=== PATIENT | female | born 1980 | race Two or more races ===

== ENCOUNTER 2019-01-08 12:50 | Emergency (ER) | payer SELFPAY ==
[2019-01-08 12:56] VITALS: BP 119/75
[2019-01-08] MEDS ORDERED: PREDNISONE 20 MG TABLET PO ONE (13:36)
--- NOTE | 2019-01-08 13:36 | ER Document Report ---
HPI - HPI Patient complains to provider of: rash Time Seen by Provider: 01/08/19 13:21 Onset: Other - 2 weeks Quality of pain: Achy Pain Level: 4 - itchy Context: This 38-year-old female presents emergency department with severe rash to her hands, soles of her feet around her groin to her right wrist for the past 2 weeks. She has been to see 2 different providers who have both prescribed di fferent steroid lotions for eczema. She reports nothing is working the rash is getting worse. She also reports her daughter now has one spot on her wrist. Patient reports the rash is severely itchy. She denies recent new detergents or lotions. She reports she is never had this before. She denies fever vomiting diarrhea. - REPRODUCTIVE Reproductive: DENIES: : Past Medical History - General Information source: Patient Last Menstrual Period: last week denies - Social History Smoking Status: Unknown if Ever Smoked Cigarette use (# per day): No Frequency of alcohol use: None Drug Abuse: None Lives with: Family Family History: Reviewed & Not Pertinent Patient has suicidal ideation: No Patient has homicidal ideation: No - Medical History Medical History: Negative Surgical Hx: Negative Vertical Provider Document - CONSTITUTIONAL Agree With Documented VS: Yes Exam Limitations: No Limitations General Appearance: WD/WN, No Apparent Distress - INFECTION CONTROL TRAVEL OUTSIDE OF THE [place] IN LAST 30 DAYS: No - HEENT HEENT: Atraumatic, Normocephalic - NECK Neck: Supple - RESPIRATORY Respiratory: Breath Sounds Normal, No Respiratory Distress - CARDIOVASCULAR Cardiovascular: Regular Rate - MUSCULOSKELETAL/EXTREMETIES Musculoskeletal/Extremeties: MAKB, FROM - NEURO Level of Consciousness: Awake, Alert, Appropriate Motor/Sensory: No Motor Deficit - DERM Integumentary: Warm, Dry, Rash - multiple small, vesicles on the palmar plantar skin, especially along the lateral aspects of the fingers and toes , right volar wrist, no open wounds Course - Re-evaluation Re-evalutation: 01/08/19 13:39 This 38-year-old female presents with history of eczema. Patient has been to see 2 different providers who prescribed her lotions for her hands. She reports eczema is worse. Reports is very itchy. Patient was shown a picture of dyshidrotic eczema. She reports that is exactly how it started. Will place patient on oral steroids instructed to follow back up with her primary care provider for recheck within the week and also follow-up with dermatology. Patient verbalized understanding to all instructions. She was also instructed to person protect her skin try not to itch take Benadryl as indicated Dictation of this chart was performed using voice recognition software; therefore, there may be some unintended grammatical errors. 01/08/19 14:05 - Vital Signs Vital signs: Temp Pulse Resp BP Pulse Ox 97.8 F 83 19 119/75 97 01/08/19 12:55 01/08/19 12:55 01/08/19 12:55 01/08/19 12:55 01/08/19 12:55 Discharge - Discharge Clinical Impression: Dyshidrotic eczema Condition: Stable Disposition: HOME, SELF-CARE Instructions: Psychological Operations, Steroid Medication Additional Instructions: *You have been treated for dyshidrotic eczema *Take medication as prescribed *Monitor your skin for signs of infection such as increasing pain, redness, swelling, warmth *protect your skin, avoid itching, apply vaseline, wear gloves at night *Follow up with a primary care provider within one week for recheck *Follow-up with a dermatology teacher within 1 week *Return to ED for signs of infection, worsening condition, changes, needs Prescriptions: Prednisone [Deltasone 10 mg Tablet] 10 mg PO ASDIR PRN #21 tablet PRN Reason: Referrals: LEAH PEDERSON MD [ACTIVE STAFF] - Follow up as needed [facility] [Provider Group] - Follow up in 1 week
== END 2019-01-08 13:52 | disposition home or self-care (01) ==
LOC: ER 12:50
DX: L30.1 Dyshidrosis [pompholyx] (principal); R21 Rash and other nonspecific skin eruption
CPT/HCPCS: 99282; J7512

== ENCOUNTER 2019-01-21 15:40 | Emergency (ER) | payer SELFPAY ==
[2019-01-21 15:55] VITALS: BP 121/71
--- NOTE | 2019-01-21 17:06 | ER Document Report ---
HPI - HPI Time Seen by Provider: 01/21/19 17:03 Pain Level: 5 Context: Patient is a 38-year-old female presents to the emergency department with a chief complaint of rash. Patient states she was seen here 2 weeks ago and given a prednisone taper. Patient states the prednisone did help but since completing the course of steroids the rash has returned. Patient states it remains specifically to the hands bilaterally. Patient states she noticed small blisters that pop. Patient states she does work with her hands a lot at work but does wear gloves to keep them covered. Patient states she does not think she is allergic to the gloves that she has been using them for 5 years. Patient states she has had similar symptoms in the past and diagnosed with eczema. Patient states she is been getting eczema creams in the past. Patient states she attempted to follow-up with dermatology but was told she needed a referral. Patient asking for referral. - REPRODUCTIVE Reproductive: DENIES: : Past Medical History - General Information source: Patient - Social History Smoking Status: Never Smoker Frequency of alcohol use: None Drug Abuse: None Lives with: Family Family History: Reviewed & Not Pertinent - Past Medical History Cardiac Medical History: Reports: None Pulmonary Medical History: Reports: None EENT Medical History: Reports: None Neurological Medical History: Reports: None Endocrine Medical History: Reports: None Renal/ Medical History: Reports: None. Denies: Hx Peritoneal Dialysis Malignancy Medical History: Reports: None GI Medical History: Reports: None Musculoskeletal Medical History: Reports None Skin Medical History: Reports Hx Eczema Psychiatric Medical History: Reports: None Traumatic Medical History: Reports: None Infectious Medical History: Reports: None Surgical Hx: Negative Vertical Provider Document - CONSTITUTIONAL Agree With Documented VS: Yes Exam Limitations: No Limitations General Appearance: No Apparent Distress - INFECTION CONTROL TRAVEL OUTSIDE OF THE [place] IN LAST 30 DAYS: No - HEENT HEENT: Atraumatic, Normal ENT Exam, Normocephalic, PERRLA - RESPIRATORY Respiratory: Breath Sounds Normal, No Respiratory Distress - CARDIOVASCULAR Cardiovascular: Regular Rate, Regular Rhythm - GI/ABDOMEN Gastrointestinal: Abdomen Soft, Abdomen Non-Tender, Normal Bowel Sounds - NEURO Level of Consciousness: Awake, Alert, Appropriate - DERM Integumentary: Warm Notes: Patient has multiple small vesicles to the palmar and dorsal aspect of bilateral hands. Patient also notes to have some excoriated skin in between the fingers. There is an open wound to the left hand with no erythema or obvious signs of infection. Course - Re-evaluation Re-evalutation: 01/21/19 17:42 We will give a dose of Decadron prior to discharge. Patient is asking for more oral steroids. I did inform the patient that I will not prescribe oral steroids as this is only a temporary fix and she just finished a taper dose. I did prescribe the patient a steroid cream to place on her hands twice a day for 10 days. I did inform the patient to not use this after that as it is a steroid. Patient states she is not breast-feeding or currently . I did give the patient multiple dermatology referrals. I did inform the patient to buy [id number] Eucerin lotion as this can be used for eczema. Patient to keep them clean and dry with lotion. I did instruct the patient to return if symptoms worsen. Patient verbalized understanding. - Vital Signs Vital signs: Temp Pulse Resp BP Pulse Ox 98.2 F 87 16 121/71 96 01/21/19 15:54 01/21/19 15:54 01/21/19 15:54 01/21/19 15:54 01/21/19 15:54 Discharge - Discharge Clinical Impression: Rash Eczema Qualifiers: Eczema type: unspecified Qualified Code(s): L30.9 - Dermatitis, unspecified Condition: Stable Disposition: HOME, SELF-CARE Additional Instructions: Today you were seen in the emergency department for a rash to her hands. This does appear to be eczema. Ultimately you need to follow-up with dermatology as they can develop a treatment plan that works for you. I am prescribing you a topical steroid versus oral steroids. Please use this as needed. Please avoid scented lotions, perfume and keep your hands covered while at work so you are not getting them wet. Try Eucerin lotion as this can be helpful and less irritating. Hoy te vieron en el departamento de emergencias por josé erupcin en las serina. Ennis parece ser eccema. En ltima instancia, debe realizar un seguimiento con dermatologa, ya que pueden desarrollar un plan de tratamiento que funcione para usted. Te estoy prescribiendo un esteroide tpico versus esteroides orales. Utilice esto segn sea necesario. Evite las lociones perfumadas, los perfumes y mantenga las serina cubiertas mientras est en el trabajo para que no se moje. Pruebe la locin Eucerin, ya que puede ser til y menos irritante. Prescriptions: Prednisone [Deltasone 10 mg Tablet] 10 mg PO ASDIR PRN #21 tablet PRN Reason: Triamcinolone Acetonide 80 gm TP BID 10 Days #1 tube Cetirizine HCl [Zyrtec] 10 mg PO DAILY #30 capsule Referrals: EMILY COOL DO [ACTIVE STAFF] - Follow up as [facility] [[facility]] - Follow up as needed NIRMAL HENDERSON MD [ACTIVE STAFF] - Follow up as needed [facility] [Provider Group] - Follow up as needed Print Language: Telugu
[2019-01-21] MEDS ORDERED: DEXAMETHASONE SOD PHOS INJ 10 MG/1 ML VIAL IM ONE (17:40)
== END 2019-01-21 18:34 | disposition home or self-care (01) ==
LOC: ER 15:40
DX: L30.9 Dermatitis, unspecified (principal)
CPT/HCPCS: 96374; 99282; J1100

== ENCOUNTER 2020-02-06 03:34 | Emergency (ER) | payer SELFPAY ==
[2020-02-06 05:15] LABS: APPEARANCE,URINE SLIGHTLY-CLOUDY; BILIRUBIN,URINE NEGATIVE (NEGATIVE); COLOR,URINE YELLOW; GLUCOSE, URINE NEGATIVE (NEGATIVE); KETONES,URINE NEGATIVE (NEGATIVE); LEUKOCYTE ESTERASE,URINE TRACE (NEGATIVE); NITRITE,URINE NEGATIVE (NEGATIVE); PROTEIN,URINE NEGATIVE (NEGATIVE); URINE SPECIFIC GRAVITY 1.016; UROBILINOGEN,URINE NEGATIVE mg/dL (<2.0)
[2020-02-06] MEDS ORDERED: ONDANSETRON HCL INJ/PF 4 MG/2 ML SDV IV ONE (05:28)
[2020-02-06] MEDS ORDERED: NORMAL SALINE 1000 ML 1,000 ML IV ONE (05:28)
[2020-02-06] MEDS ORDERED: KETOROLAC TROMETHAMINE INJ/PF 30 MG/1 ML SDV IV ONE (05:28)
--- NOTE | 2020-02-06 05:32 | ER Document Report ---
ED General - General TRAVEL OUTSIDE OF THE [place] IN LAST 30 DAYS: No - HPI Onset: Yesterday Onset/Duration: Gradual Quality of pain: Cramping Severity: Moderate Pain Level: 3 Associated symptoms: Diarrhea, Nausea, Vomiting, Weakness Exacerbated by: Movement Relieved by: Remaining still <NIKKI MARTÍNEZ IV - Last Filed: 02/06/20 05:32> <GRIMESSHAHID Yulisa - Last Filed: 02/06/20 10:17> - General Chief Complaint: Nausea/Vomiting/Diarrhea Stated Complaint: NAUSEA,DIARRHEA,ABDOMINAL PAIN Time Seen by Provider: 02/06/20 05:20 - HPI Context: This is a 39-year-old female presenting to the emergency department complaining of nausea, vomiting and diarrhea as well as diffuse crampy abdominal pain that has been present for the past 2 days. Patient denies sick contacts or spoiled food exposure. Patient denies fever, chills, shortness of breath, chest pain. Patient states her menstrual cycle is occurring at present and is earlier than usual. Activity and eating seem to exacerbate her symptoms according to the patient. Remaining still slightly improves the symptoms but only temporarily. Patient denies known exposure to persons under investigation or persons recently diagnosed with COVID 19. (NIKKI MARTÍNEZ IV) - Related Data Allergies/Adverse Reactions: No Known Allergies Allergy (Verified 01/21/19 15:41) Past Medical History - General Information source: Patient - Social History Smoking Status: Never Smoker Chew tobacco use (# tins/day): No Frequency of alcohol use: None Drug Abuse: None Family History: Reviewed & Not Pertinent Renal/ Medical History: Denies: Hx Peritoneal Dialysis Skin Medical History: Reports Hx Eczema <NIKKI MARTÍNEZ IV - Last Filed: 02/06/20 05:32> Review of Systems - Review of Systems Constitutional: Weakness EENT: No symptoms reported Cardiovascular: No symptoms reported Respiratory: No symptoms reported Gastrointestinal: Abdominal pain, Diarrhea, Nausea, Vomiting Genitourinary: No symptoms reported Female Genitourinary: Irregular period Musculoskeletal: No symptoms reported Skin: No symptoms reported Hematologic/Lymphatic: No symptoms reported Neurological/Psychological: No symptoms reported -: Yes All other systems reviewed and negative <NIKKI MARTÍNEZ IV - Last Filed: 02/06/20 05:32> Physical Exam <NIKKI MARTÍNEZ IV - Last Filed: 02/06/20 05:32> - Vital signs Vitals: Temp Pulse Resp BP Pulse Ox 99.0 F 109 H 18 144/92 H 100 02/06/20 03:42 02/06/20 03:42 02/06/20 03:42 02/06/20 03:42 02/06/20 03:42 - Notes Notes: CONSTITUTIONAL [Vital signs reviewed, Patient appears comfortable, Alert and oriented X 3, Normal stature.] HEAD [Atraumatic, Normocephalic.] EYES [Eyes are normal to inspection, No discharge from eyes, Extraocular muscles intact, Sclera are normal, Conjunctiva are normal.] NECK [Normal ROM, No jugular venous distention, No meningeal signs, no carotid bruit.] RESPIRATORY CHEST [Chest is nontender, Breath sounds normal, No respiratory distress.] CARDIOVASCULAR [RRR, No murmurs, Normal S1 S2, No rub, No gallop.] ABDOMEN [Abdomen is nontender, No pulsatile masses, No other masses, Bowel sounds no rmal, No distension, No peritoneal signs, No hernias.] BACK [There is no CVA Tenderness, There is no tenderness to palpation, Normal inspection.] UPPER EXTREMITY [Inspection normal, No cyanosis, No clubbing, No edema, 2+ radial pulses.] LOWER EXTREMITY [Inspection normal, No cyanosis, No clubbing, No edema, No calf tenderness, 2+ femoral pulses.] NEURO [No focal motor deficits, No focal sensory deficits, Speech normal.] SKIN [Skin is warm, Skin is dry, Skin is normal color.] LYMPHATIC [No adenopathy in neck.] PSYCHIATRIC [Normal affect. ] (NIKIK MARTÍNEZ IV) Course - Laboratory Result Diagrams: 02/06/20 05:01 02/06/20 05:01 <NIKKI MARTÍNEZ IV - Last Filed: 02/06/20 05:32> - Laboratory Result Diagrams: 02/06/20 05:01 02/06/20 05:01 - Diagnostic Test Radiology reviewed: Reports reviewed <SHAHID GRIMES - Last Filed: 02/06/20 10:17> - Re-evaluation Re-evalutation: 02/06/20 10:10 Patient resting comfortably not showing any acute distress at this time. Patient is medically cleared for discharge. Patient has an ovarian cyst on the left no active bleeding or torsion noted. (SHAHID GRIMES) - Vital Signs Vital signs: Temp Pulse Resp BP Pulse Ox 98.4 F 81 15 111/65 100 02/06/20 09:56 02/06/20 09:56 02/06/20 09:56 02/06/20 09:56 02/06/20 09:56 - Laboratory Laboratory results interpreted by me: 02/06/20 02/06/20 02/06/20 04:25 05:01 05:01 WBC 14.9 H Lymph % (Auto) 9.7 L Absolute Neuts (auto) 12.7 H Seg Neutrophils % 85.3 H Carbon Dioxide 21 L Glucose 122 H AST 42 H ALT 38 H Urine Blood LARGE H Ur Leukocyte Esterase TRACE H 02/06/20 10:11 Patient is on her menstrual cycle therefore urine shows a large amount of blood patient has a mild elevation and AST LFTs and a glucose is 122. Patient has a white blood cell count of 14.9 a low-grade temp of 99. (SHAHID GRIMES) - Diagnostic Test Radiology results interpreted by me: 02/06/20 10:12 CT scan of abdomen and pelvis disclose no acute process except for finding and left adnexal mass thought to be cyst versus any other type of tumor or mass. Ultrasound was recommended Ultrasound of pelvis shows a left ovarian mass and no other acute process. (SHAHID GRIMES) Discharge <NIKKI MARTÍNEZ IV - Last Filed: 02/06/20 05:32> <SHAHID GRIMES - Last Filed: 02/06/20 10:17> - Discharge Clinical Impression: Left ovarian cyst, Leukocytosis Condition: Stable Disposition: HOME, SELF-CARE Prescriptions: Amoxicillin/Potassium Clav [Augmentin 875-125 Tablet] 1 tab PO BID #14 tab Ibuprofen [Ibu] 800 mg PO TID PRN #21 tablet PRN Reason: For Pain Scale 3-5 Referrals: CORINNA NICHOLSON MD [ACTIVE STAFF] - Follow up in 1 week
[2020-02-06 05:42] LABS: ABSOLUTE EOSINOPHILS # (AUTO) 0.1 10^3/uL (0.0-0.6); ABSOLUTE LYMPHOCYTES (AUTO) 1.4 10^3/uL (0.5-4.7); ABSOLUTE MONOCYTES (AUTO) 0.6 10^3/uL (0.1-1.4); ABSOLUTE NEUT (AUTO) 12.7 10^3/uL (1.7-8.2); BASOPHILS % (AUTO) 0.3 % (0-2); EOSINOPHILS % (AUTO) 0.7 % (0-6); HEMATOCRIT 38.7 % (36.0-47.0); HEMOGLOBIN 12.7 g/dL (12.0-15.5); LYMPHOCYTES % (AUTO) 9.7 % (13-45); MEAN CORPUSCULAR HEMOGLOBIN 28.1 pg (27.0-33.4); MEAN CORPUSCULAR HGB CONC 32.8 g/dL (32.0-36.0); MEAN CORPUSCULAR VOLUME 86 fl (80-97); PLATELET COUNT 439 10^3/uL (150-450); RED BLOOD COUNT 4.51 10^6/uL (3.72-5.28); RED CELL DISTRIBUTION WIDTH 13.8 % (11.5-14.0); SEGMENTED NEUTROPHILS % (AUTO) 85.3 % (42-78); TOTAL CELLS COUNTED % (AUTO) 100 %; WHITE BLOOD COUNT 14.9 10^3/uL (4.0-10.5)
[2020-02-06 05:51] LABS: ALBUMIN 4.2 g/dL (3.5-5.0); ALKALINE PHOSPHATASE 115 U/L (38-126); ANION GAP 12 (5-19); ASPARTATE AMINO TRANSFERASE 42 U/L (14-36); BILIRUBIN,DIRECT 0.2 mg/dL (0.0-0.4); BILIRUBIN,TOTAL 0.4 mg/dL (0.2-1.3); BLOOD UREA NITROGEN 9 mg/dL (7-20); CALCIUM 9.1 mg/dL (8.4-10.2); CARBON DIOXIDE 21 mmol/L (22-30); CHLORIDE 107 mmol/L (98-107); GLUCOSE 122 mg/dL (75-110); POTASSIUM 3.9 mmol/L (3.6-5.0); TOTAL PROTEIN 7.6 g/dL (6.3-8.2)
--- NOTE | 2020-02-06 08:02 | RADIOLOGY REPORT (SQ) ---
CT ABDOMEN AND PELVIS WITH INTRAVENOUS CONTRAST: 02/06/2020 6:58 AM CDT HISTORY: 39-year old with abdominal pain. COMPARISON: None available TECHNIQUE: Axial contiguous images were obtained from the lung bases to the proximal femurs with intravenous intravenous contrast administered. Sagittal and coronal reconstructions were also obtained and reviewed. This exam was performed according to our departmental dose-optimization program, which includes automated exposure control, adjustment of the mA and/or KV according to the patient's size and/or use of iterative reconstruction technique. FINDINGS: No focal consolidative airspace opacities are seen. No discrete pleural effusions are seen. The visualized hepatic parenchyma is diffusely low in attenuation. No focal enhancing lesion is seen. The gallbladder demonstrates no evidence of calcified gallstones. The spleen and pancreas are normal in contour. The bilateral adrenal glands appear unremarkable. Both kidneys demonstrate no evidence of hydronephrosis. The urinary bladder is mildly distended, and appears grossly unremarkable. The uterus is present. There is an IUD seen at the uterus, likely at the endometrium. There is a left adnexal hypodensity measuring at least 5.9 x 4.9 cm. This is indeterminate. This appears separate but adjacent to the urinary bladder. The stomach is not well distended. There is mucosal thickening involving several of the ileal loops within the right lower quadrant of the abdomen with adjacent stranding. This likely represents enteritis. This is best seen on image 54 of 85. No findings are seen to suggest an obstruction. No pericolonic inflammatory stranding is seen. The appendix appears unremarkable. There are multiple diverticula seen within the sigmoid and descending colon, without evidence to suggest diverticulitis. An anterior umbilical hernia containing omental fat is seen. There is no evidence of pneumoperitoneum. There is trace free fluid within the lower pelvis.. The aorta and IVC appear normal in size. No significantly enlarged lymph nodes are seen in the abdomen or pelvis. Review of the bone show no evidence of any suspicious lytic or blastic lesions. IMPRESSION: There is a hypodensity within the left adnexa which may arise from the left ovary. This is separate but adjacent to the urinary bladder. This may represent a cystic neoplasm or hydrosalpinx. This could be better evaluated with ultrasound of the pelvis. There is mucosal thickening involving several of the ileal loops within the right lower quadrant of the abdomen with adjacent stranding. This likely represents enteritis. Hepatic steatosis
[2020-02-06 09:58] VITALS: BP 111/65
--- NOTE | 2020-02-06 10:10 | ER Document Report ---
Entered by KAREY CONSTANTINO SCRIBE 02/06/20 1002 Acting as scribe for:SHAHID GRIMES MD Doctor's Note Notes: 02/06/20 10:01 Received sign out on this patient pending CT results from Dr. Reid. CT consistent with left-sided ovarian cyst. Will discharge with ibuprofen and antibiotics. There is minimal pain in the left pelvic region. 02/06/20 10:10 I personally performed the services described in the documentation, reviewed and edited the documentation which was dictated to the scribe in my presence, and it accurately records my words and actions.
--- NOTE | 2020-02-06 10:26 | RADIOLOGY REPORT (SQ) ---
EXAM DESCRIPTION: U/S NON OB PEL W/DOPPLER IMAGES COMPLETED DATE/TIME: 02/06/2020 9:41 am REASON FOR STUDY: left adnexal mass COMPARISON: CT abdomen and pelvis 02/06/2020 TECHNIQUE: Dynamic and static grayscale images acquired of the pelvis via transabdominal and transva ginal approach and recorded on PACS. Additional selected color Doppler and spectral images recorded. LIMITATIONS: None. FINDINGS: UTERUS: Contour normal. No mass. An intrauterine device is present. ENDOMETRIAL STRIPE: No focal or generalized thickening. No masses. CERVIX: No nabothian cysts. RIGHT OVARY AND DOPPLER: Not visualized. LEFT OVARY AND DOPPLER: The left ovary overall measures 5.3 x 2.8 x 6.4 cm. It contains a hypoechoi c structure measuring 4.0 x 3.7 x 4.6 cm with some linear echogenic septae. Normal arterial vascular flow without evidence for torsion. FREE FLUID: None noted. OTHER: No other significant finding. MEASUREMENTS: UTERUS: 9.8 x 5.8 x 6.3 cm ENDOMETRIAL STRIPE: 3 mm RIGHT OVARY: Not visualized. LEFT OVARY: 5.3 x 2.8 x 6.4 cm IMPRESSION: Slightly complicated left ovarian cystic structure with some internal septi. Recommend follow-up ultrasound in 2 to 3 menstrual cycles to document resolution. Nonvisualization of the right ovary. Unremarkable appearance of the uterus with an intrauterine device in place. TECHNICAL DOCUMENTATION: JOB ID: [id number] 2010 [employer]- All Rights Reserved Rev-10/18 Reading location - IP/workstation name: [email or web address]
== END 2020-02-06 10:15 | disposition home or self-care (01) ==
LOC: ER 03:34
DX: N83.202 Unspecified ovarian cyst, left side (principal); D72.829 Elevated white blood cell count, unspecified; R10.2 Pelvic and perineal pain; R11.2 Nausea with vomiting, unspecified; R53.1 Weakness
CPT/HCPCS: 99285; 96361; 96374; 96375; 36415; 85025; 81025; 80053; 81001; 76856; 93976; 74177; J1885; J2405; J7030